=== PATIENT | male | born 1960 | race Two or more races ===

== ENCOUNTER 2021-05-13 01:49 | Emergency (ER) | payer MEDICAID ==
[~2021-05-13] VITALS: Ht 167.6 cm; Wt 112.3 kg
[~2021-05-13 01:49] MED LIST: LISI-892 PO
[2021-05-13 02:42] LABS: COVID AG,FIA SOURCE NASOPHARYNGEAL
[2021-05-13 02:48] LABS: BASOPHILS % (AUTO) 0.3 % (0.0-2.0); EOSINOPHILS % (AUTO) 0.1 % (1.0-6.0); HEMATOCRIT 40.7 % (41-53); HEMOGLOBIN 13.8 g/dL (13.5-17.5); LYMPHOCYTES # (AUTO) 0.9 K/uL (1.0-4.8); LYMPHOCYTES % (AUTO) 15.3 % (22.0-44.0); MEAN CORPUSCULAR HEMOGLOBIN 32.4 pg (26.0-34.0); MEAN CORPUSCULAR VOLUME 96 fL (80-100); MONOCYTES # (AUTO) 0.5 K/uL (0.1-1.0); MONOCYTES % (AUTO) 8.1 % (2.0-9.0); NEUTROPHILS # (AUTO) 4.7 K/uL (1.8-7.7); NEUTROPHILS % (AUTO) 76.2 % (40.0-70.0); PLATELET COUNT (AUTO) 126 K/uL (150-450); RED BLOOD CELL COUNT(AUTO) 4.27 MIL/uL (4.50-5.90); RED CELL DISTRIBUTION WIDTH 12.5 % (11.5-14.5)
[2021-05-13 03:09] LABS: ALANINE AMINOTRANSFERASE 32 U/L (12-78); ALBUMIN 2.5 g/dL (3.4-5.0); ALKALINE PHOSPHATASE 72 U/L (46-116); ANION GAP 9 mmol/L (8-16); ASPARTATE AMINOTRANSFERASE 34 U/L (15-37); BILIRUBIN,TOTAL 0.5 mg/dL (0.1-1.0); C-REACTIVE PROTEIN QUANT 14.86 mg/dL (0.00-0.30); CALCIUM, TOTAL 8.2 mg/dL (8.8-10.5); CARBON DIOXIDE 26 mmol/L (22-29); CHLORIDE 108 mmol/L (98-107); CREATININE 0.78 mg/dL (0.60-1.30); FERRITIN 373 ng/mL (26-388); GLOMERULAR FILTR. RATE CALC > 60 mL/min (>60); GLUCOSE,RANDOM 151 mg/dL (70-110); LACTATE DEHYDROGENASE 305 U/L (85-227); POTASSIUM 3.9 mmol/L (3.5-5.1); SODIUM SERUM 143 mmol/L (136-145); TOTAL PROTEIN, SERUM 6.9 g/dL (6.4-8.2); UREA NITROGEN, BLOOD 14 mg/dL (7-18)
[2021-05-13] MEDS ORDERED: IOHEXOL 350 MG/ML 150 ML VIAL ONE (03:11)
[2021-05-13] MEDS ORDERED: SODIUM CHLORIDE 0.9% 100 ML ONE (03:11)
[2021-05-13 05:35] VITALS: BP 138/72
== END 2021-05-13 06:00 | disposition home or self-care (01) ==
LOC: EMS 01:50
DX: U07.1 COVID-19 (principal); J12.82 Pneumonia due to coronavirus disease 2019; I10 Essential (primary) hypertension; E11.9 Type 2 diabetes mellitus without complications; E78.00 Pure hypercholesterolemia, unspecified
CPT/HCPCS: 36415; 71045; 71275; 80053; 82728; 82962; 83615; 84145; 85025; 85379; 86140; 87426; 93005; 99285; J7050; Q9967; U0003

== ENCOUNTER 2022-08-14 10:07 | Emergency (ER) | payer MEDICAID ==
[~2022-08-14] VITALS: Ht 167.6 cm; Wt 110.9 kg
[2022-08-14 10:15] VITALS: BP 139/74
[2022-08-14] MEDS ORDERED: INSLAN SQ (10:30)
[2022-08-14] MEDS ORDERED: INSREG SQ (10:30)
[2022-08-14] MEDS ORDERED: IPRATROPIUM BROMIDE 0.5 MG/2.5 ML NEB SOLUTION NEB ONE (12:15)
[2022-08-14] MEDS ORDERED: ALBUTEROL SULFATE 2.5 MG/0.5 ML NEB SOLUTION NEB ONE (12:15)
[2022-08-14] MEDS ORDERED: POTA-92 PO (12:18)
[2022-08-14] MEDS ORDERED: LOSA-381 PO (12:18)
[2022-08-14 12:43] LABS: COVID AG,FIA SOURCE NASAL SWAB
[2022-08-14 13:14] LABS: INFLUENZA TYPE A NEGATIVE FOR TYPE A (NEGATIVE); INFLUENZA TYPE B NEGATIVE FOR TYPE B (NEGATIVE)
[2022-08-14] MEDS ORDERED: AZITHROMYCIN 500 MG TABLET PO ONE (13:45)
[2022-08-14] MEDS ORDERED: CefTRIAXone SODIUM 1 GM/VIAL IM ONE (13:45)
[2022-08-14] MEDS ORDERED: LIDOCAINE/PF 1% 2 ML VIAL IM ONE (13:45)
[2022-08-14] MEDS ORDERED: AZIT250T9 PO (13:53)
== END 2022-08-14 14:57 | disposition home or self-care (01) ==
LOC: EMS 10:18
DX: J15.9 Unspecified bacterial pneumonia (principal); M19.90 Unspecified osteoarthritis, unspecified site; E11.9 Type 2 diabetes mellitus without complications; E78.00 Pure hypercholesterolemia, unspecified; Z20.822 Contact with and (suspected) exposure to COVID-19
CPT/HCPCS: 99284; 71045; 87426; 82962; 87804; 94640; 96372; J0696; J3490; Q9967; J7613